=== PATIENT | female | born 1990 | race Hispanic/Latino ===

== ENCOUNTER 2020-06-21 08:27 | Outpatient (CLI) | payer OTHER ==
[2020-06-21 09:02] VITALS: BP 111/59
== END 2020-06-21 09:41 | disposition home or self-care (01) ==
LOC: TRG 08:27 → EDBD 08:27 → APU 08:28 → TRG 09:41
PROVIDERS: ATTEND Obstetrics & Gynecology
DX: O47.1 False labor at or after 37 completed weeks of gestation (principal); Z3A.39 39 weeks gestation of pregnancy
CPT/HCPCS: 59025

== ENCOUNTER 2020-06-22 09:14 | Outpatient (CLI) | payer OTHER ==
[2020-06-22 09:46] VITALS: BP 125/67
[2020-06-22] MEDS ORDERED: ACETAMINOPHEN 500 MG TAB PO ONE (12:09)
== END 2020-06-22 12:20 | disposition home or self-care (01) ==
LOC: TRG 09:14 → APU 09:15 → TRG 12:20
PROVIDERS: ATTEND Obstetrics & Gynecology
DX: O62.4 Hypertonic, incoordinate, and prolonged uterine contractions (principal)
CPT/HCPCS: 59025; Q0177